=== PATIENT | male | born 1960 | race African-American/Black ===

== ENCOUNTER 2018-07-19 02:42 | Emergency (ER) | payer MEDICAID ==
[~2018-07-19] VITALS: Ht 167.6 cm; Wt 63.5 kg
--- NOTE | 2018-07-19 02:43 | NUR ---
ED Nurse Note: Patient presents with complaints of acute abdominal pain 10/10 on pain scale radiating to the right abdomen.
[2018-07-19 02:45] VITALS: BP 146/90
[2018-07-19] MEDS ORDERED: HYDROmorphone 1mg/ml Carpuject IVP ONE (03:15)
--- NOTE | 2018-07-19 03:16 | Emergency Room Report ---
History of Present Illness General Chief Complaint: Abdominal Pain Source: Patient, EMS Present Illness HPI This is a 58-year-old male with audible medical problems. He has a history of diabetes with bilateral BKA. He has a history of substance abuse in the past. He was just discharged from [facility] for stump wound infection. He presents with chief complaint of abdominal pain. He woke up an hour ago with severe abdominal pain. No nausea no vomiting. No diarrhea. Pain is 9 out of 10. Diffuse in nature. He has a history of abdominal surgeries. Allergies: Coded Allergies: No Known Allergies (Unverified , 07/19/18) Patient History Past Medical History: see triage record, old chart reviewed, DM, HTN Past Surgical History: other Pertinent Family History: none Social History: Denies: smoking Immunizations: other Nursing Documentation-[facility] Past Medical History: No History, Except For Hx Hypertension: Yes Hx Diabetes: Yes Review of Systems Eye: Denies: eye pain, blurred vision ENT: Denies: ear pain, nose congestion, throat swelling Respiratory: Denies: cough, shortness of breath Cardiovascular: Denies: chest pain, palpitations Gastrointestinal: Reports: abdominal pain; Denies: diarrhea, nausea, vomiting Musculoskeletal: Denies: back pain, joint pain Skin: Denies: rash Neurological: Denies: headache, numbness Endocrine: Denies: increased thirst, increased urine Hematologic/Lymphatic: Denies: easy bruising All Other Systems: negative except mentioned in HPI Physical Exam Vital Signs Date Time Temp Pulse Resp B/P (MAP) Pulse Ox O2 Delivery O2 Flow Rate FiO2 07/19/18 02:33 93.9 80 16 146/90 98 Room Air vitals with low temperature. Repeat temperature normal Sp02 EP Interpretation: reviewed, normal General Appearance: well appearing, no apparent distress, alert Head: normocephalic, atraumatic Eyes: bilateral eye PERRL, bilateral eye EOMI ENT: hearing grossly normal, normal pharynx Neck: full range of motion, supple, no meningismus Respiratory: chest non-tender, lungs clear, normal breath sounds Cardiovascular #1: regular rate, rhythm, no murmur Gastrointestinal: no mass, no organomegaly, no bruit, non-distended, tenderness - Diffuse, decreased bowel sounds Musculoskeletal: back normal Psychiatric: mood/affect normal Skin: warm/dry Medical Decision Making Diagnostic Impression: Primary Impression: Abdominal pain Qualified Codes: R10.84 - Generalized abdominal pain Additional Impressions: Anemia Qualified Codes: D64.9 - Anemia, unspecified Chronic pain Qualified Codes: G89.4 - Chronic pain syndrome ER Course Patient with exacerbation of chronic pain. I see no evidence of acute abdomen. No evidence of urinary tract infection. Lipase is mildly elevated but patient showed no evidence of pancreatitis. We'll discharge back to [facility]. Lab Results Impression labs with elevation of lipase. CT/MRI/US Diagnostic Results CT/MRI/US Diagnostic Results : Imaging Test Ordered: CT abdomen and pelvis Impression no acute process per radiologist. Last Vital Signs Date Time Temp Pulse Resp B/P (MAP) Pulse Ox O2 Delivery O2 Flow Rate FiO2 07/19/18 02:33 93.9 80 16 146/90 98 Room Air Status: improved Disposition: [facility] Condition: Stable Referrals: POP TUTTLE (PCP) Patient Instructions: Abdominal Pain, Adult Additional Instructions: Follow-up with your doctor in 7 days. Return if symptom worsen. Mikey Lion MD Jul 19, 2018 03:16
[2018-07-19 03:28] LABS: EOSINOPHILS % (AUTO) 0.7 % (0.0-3.0); HEMATOCRIT 31.1 % (42.0-52.0); LYMPHOCYTES % (AUTO) 30.6 % (20.0-45.0); MEAN CORPUSCULAR VOLUME 89 FL (80-99); NEUTROPHILS % (AUTO) 63.8 % (45.0-75.0); PLATELET COUNT 446 K/UL (150-450); RED BLOOD COUNT 3.48 M/UL (4.70-6.10); RED CELL DISTRIBUTION WIDTH 14.9 % (11.6-14.8); WHITE BLOOD COUNT 9.3 K/UL (4.8-10.8)
[2018-07-19 03:31] LABS: APPEARANCE,URINE CLEAR; BILIRUBIN, URINE NEGATIVE (NEGATIVE); COLOR,URINE PALE YELLOW; GLUCOSE, URINE (UA) NEGATIVE (NEGATIVE); KETONES,URINE NEGATIVE (NEGATIVE); LEUKOCYTE ESTERASE ,URINE NEGATIVE (NEGATIVE); NITRITE,URINE NEGATIVE (NEGATIVE); PH,URINE 7 (4.5-8.0); PROTEIN,URINE NEGATIVE (NEGATIVE); UROBILINOGEN,URINE NORMAL MG/DL (0.0-1.0)
[2018-07-19 03:33] VITALS: BP 159/92
--- NOTE | 2018-07-19 03:34 | NUR ---
ED Nurse Note: Patient resting comfortably post medication administration, no complaints of pain or discomfort.
[2018-07-19 03:40] LABS: ANION GAP 6 mmol/L (5-15); BLOOD UREA NITROGEN 21 mg/dL (7-18); CALCIUM 8.7 MG/DL (8.5-10.1); CARBON DIOXIDE 30 MMOL/L (21-32); CHLORIDE 100 MMOL/L (98-107); CREATININE 0.8 MG/DL (0.55-1.30); POTASSIUM 4.2 MMOL/L (3.5-5.1); SODIUM 136 MMOL/L (136-145)
[2018-07-19 03:46] LABS: ALANINE AMINOTRANSFERASE 56 U/L (12-78); ALBUMIN 2.5 G/DL (3.4-5.0); ALBUMIN/GLOBULIN RATIO 0.5 (1.0-2.7); ALKALINE PHOSPHATASE 310 U/L (46-116); ASPARTATE AMINO TRANSFERASE 48 U/L (15-37); BILIRUBIN,TOTAL 0.1 MG/DL (0.2-1.0)
--- NOTE | 2018-07-19 03:54 | NUR ---
ED Nurse Note: PAtient is accompanying radiology fo CT of the Abdomen and pelvis.
--- NOTE | 2018-07-19 04:28 | NUR ---
ED Nurse Note: Patient has complaints of right leg pain from reopening of the surgical site, ERMD informed and patient medicated.
[2018-07-19] MEDS ORDERED: Morphine Sulfate 4mg/ml Inj (IV/IM USE ONLY) IVP ONE (04:30)
[2018-07-19 04:33] VITALS: BP 128/69
--- NOTE | 2018-07-19 05:50 | NUR ---
ED Nurse Note: Patient cleared for discharge, being picked up by [facility] at this time, called in to facility to give report to Bronwyn BLAKE, Patient is awake, alert and oriented X4, ID band removed, IV removed. Facility provided with copy of CT, lab results were unremarkable.
[2018-07-19 05:54] VITALS: BP 123/86
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
== END 2018-07-19 05:52 ==
LOC: EDBD 02:42 → EMR 03:12
DX: R10.84 Generalized abdominal pain (principal); D64.9 Anemia, unspecified; G89.4 Chronic pain syndrome; I10 Essential (primary) hypertension; E11.9 Type 2 diabetes mellitus without complications; F19.10 Other psychoactive substance abuse, uncomplicated; Z89.512 Acquired absence of left leg below knee; Z89.511 Acquired absence of right leg below knee; Z98.890 Other specified postprocedural states
CPT/HCPCS: 36415; 74176; 80053; 81003; 83690; 85025; 96361; 96374; 96375; 99284; J1170; J2270; J2405